=== PATIENT | female | born 1990 | race Caucasian/White ===

== ENCOUNTER 2017-07-04 13:40 | Outpatient (CLI) | payer MEDICAID ==
[~2017-07-04 13:40] MED LIST: DICLEGIS1 TCP PO; MACROBID 100MG100 MG PO; ONDANSETRON4 M1 PO; PHENERGAN 25MG.25 MG PR; PHENERGAN12.5 M3 PO; PHENERGAN25 M3 PO; PHENERGAN25 M4 RC; PREDNISONE 20MG20 MG PO; PRENATAL PLUS1 TA1 PO; UNISOM25 M2 PO; VITAMIN B-625 M1 PO; ZOFRAN ODT4 MG PO
== END 2017-07-04 14:25 | disposition home or self-care (01) ==
LOC: COP 13:40
DX: Z45.2 Encounter for adjustment and management of vascular access device (principal)

== ENCOUNTER 2017-07-11 11:45 | Outpatient (CLI) | payer MEDICAID | END 2017-07-11 12:00 | disposition home or self-care (01) | LOC: COP 11:45 | DX: Z45.2 Encounter for adjustment and management of vascular access device (principal); Z48.00 Encounter for change or removal of nonsurgical wound dressing | CPT/HCPCS: G0463 ==

== ENCOUNTER → 2017-07-18 | Outpatient (CLI) | payer MEDICAID | LOC: COP 15:00 | DX: Z45.2 Encounter for adjustment and management of vascular access device (principal); Z48.00 Encounter for change or removal of nonsurgical wound dressing ==

== ENCOUNTER 2017-07-29 12:30 | Outpatient (CLI) | payer MEDICAID | END 2017-07-29 13:00 | disposition home or self-care (01) | LOC: COP 12:30 | DX: Z45.2 Encounter for adjustment and management of vascular access device (principal) | CPT/HCPCS: G0463 ==

== ENCOUNTER 2017-08-07 11:25 | Outpatient (CLI) | payer MEDICAID ==
--- NOTE | 2017-08-07 17:55 | RADIOLOGY REPORT PS360 ---
US PREG COMP: INDICATION: 20 WEEK ANATOMICAL SURVEY ORDERING PHYSICIAN: Yogesh Zuniga MD PATIENT AGE: 27 years TECHNIQUE: ultrasound transabdominal scanning. COMPARISON: No previous relevant studies. FINDINGS: Single viable intrauterine gestation. Breech position. Placenta: Posterior and fundal placenta grade 1. There is average amount fluid. The cervix appears satisfactory. Closed and measuring 3 cm in length. Complete survey performed and was unremarkable on the submitted images as in PACS. No discrete anomalies identified on survey imaging by technologist. Active fetus. Three-vessel cord with satisfactory umbilical cord insertion. 4- chamber heart noted. Survey of brain & ventricles. Face and neck survey unremarkable. Diaphragm and chest views unremarkable. Abdomen: Both kidneys noted and unremarkable. Stomach noted and satisfactory. Spine: Survey of the spine satisfactory with no anomalies identified nor imaged. Both arms and legs noted. Amniotic Fluid: Adequate. Maternal adnexa: No significant findings. Measurements: Average ultrasound age 20 weeks 3 days. Gestational Age 20 weeks 0 days. Estimated due date by ultrasound age 312/22/2017. Estimated weight 343 grams.. This is 61st percentile based on LMP BPD = 21 weeks 0 days OFD = 21 weeks 0 days HC = 20 weeks 2 days AC = 21 weeks 0 days FL = 19 weeks 3 days Heart Rate = 152 BPM Cerebellum = 20 weeks 5 days Humerus = 20 weeks 6 days HC/AC is 1.11. CI is 79%. FL/BPD is 61%. FL/AC is 19%. IMPRESSION: There is a single live fetus which is in the breech presentation at 20 weeks 3 days. No obvious anomalies. The placenta is posterior and fundal in implantation. Please see above for detail.
== END 2017-08-07 11:50 | disposition home or self-care (01) ==
LOC: COP 11:25
DX: Z36.89 Encounter for other specified antenatal screening (principal); Z45.2 Encounter for adjustment and management of vascular access device; Z48.00 Encounter for change or removal of nonsurgical wound dressing

== ENCOUNTER 2017-08-14 13:37 | Outpatient (CLI) | payer MEDICAID | END 2017-08-14 13:50 | disposition home or self-care (01) | LOC: COP 13:37 | DX: Z45.2 Encounter for adjustment and management of vascular access device (principal) | CPT/HCPCS: G0463 ==